=== PATIENT | female | born 1950 | race Caucasian/White ===

== ENCOUNTER 2021-01-29 13:11 | Inpatient (IN) ==
[2021-01-29] MEDS ORDERED: ONDANSETRON 4 MG/2 ML VIAL IV PRN (13:18)
[2021-01-29] MEDS ORDERED: MAGNESIUM HYDROXIDE SUSP 30 ML UDCUP PO PRN (13:25)
[2021-01-29] MEDS ORDERED: ZALEPLON 5 MG CAPSULE PO PRN (13:36)
[2021-01-29] MEDS ORDERED: VANCOMYCIN IV SCH (14:00)
[2021-01-29] MEDS ORDERED: IN SODIUM CHLORIDE IV SCH (14:00)
[2021-01-29] MEDS ORDERED: VANCOMYCIN INJ 1,500 MG in SODIUM CHLORIDE 0.9% 500 ML IV SCH (14:00)
[2021-01-29 15:30] LABS: Basophils % 0.4 % (0.0-0.8); Eosinophils # 0.2 10*3/uL (0.0-0.87); Eosinophils % 1.7 % (0.00-10.9); Hemoglobin 10.8 GM/DL (12.0-16.0); Immature Granulocytes % 0.4 %; Immature Granulocytes Absolute 0.04 #; Lymphocytes # 2.4 10*3/uL (1.4-4.0); Lymphocytes % 24.2 % (21.3-54.2); Mean Corpuscular HGB Conc 31.8 GM/DL (32-36); Mean Corpuscular Volume 86.5 FL (87-102); Mean Platelet Volume 9.4 FL (9.6-12.0); Monocytes % 7.2 % (1.7-12.7); Neutrophils % 66.1 % (38.7-73.9); Platelet Count 350 T/CUMM (130-400); Red Blood Count 3.93 MC/CUMM (3.8-5.5); Red Cell Distribution Width 14.6 % (9.3-17.3); White Blood Count 9.9 T/CUMM (4-12)
[2021-01-29 16:04] LABS: Alanine Aminotransferase 23 U/L (13-56); Albumin 2.9 G/DL (3.4-5.0); Alkaline Phosphatase 152 U/L (45-117); Aspartate Amino Transferase 13 U/L (0-37); Bilirubin,Total < 0.39 MG/DL (0.2-1.0); Blood Urea Nitrogen 11 MG/DL (7-18); Calcium 8.9 MG/DL (8.5-10.1); Carbon Dioxide 29 MMOL/L (21-32); Estimated Glom Filtration Rate 92 ML/MIN; Glucose 84 MG/DL (74-106); Osmolality,Calculated 261.5 MOS/KG (273-304); Potassium 2.9 MMOL/L (3.5-5.1); Sodium 132 MMOL/L (136-145); Total Protein 7.1 G/DL (6.4-8.2)
[2021-01-29] MEDS: DEXTROSE 5% NACL 0.45% 1,000 ML IV SCH (16:07)
[2021-01-29] MEDS ORDERED: MEROPENEM 500 MG in SODIUM CHLORIDE 0.9% 100 ML IV SCH (17:00)
[2021-01-29] MEDS: POTASSIUM CHLORIDE 20 MEQ TABLET PO PRN ×3 (17:13→23:47)
[2021-01-29] MEDS: MEROPENEM 1,000 MG in SODIUM CHLORIDE 0.9% 100 ML IV SCH (17:13)
[2021-01-29] MEDS: VANCOMYCIN INJ 1,000 MG in SODIUM CHLORIDE 0.9% 250 ML IV SCH (17:53)
[2021-01-29] MEDS: DOCUSATE SODIUM 100 MG CAPSULE PO SCH (21:24)
[2021-01-29] MEDS: COLESTIPOL 1 GM TABLET PO SCH (21:24)
[2021-01-29] MEDS: ACETAMINOPHEN 325 MG TABLET PO PRN (21:24)
[2021-01-30] MEDS: MEROPENEM 1,000 MG in SODIUM CHLORIDE 0.9% 100 ML IV SCH (00:01)
[2021-01-30] MEDS: POTASSIUM CHLORIDE 20 MEQ TABLET PO PRN (01:58)
[2021-01-30] MEDS: DEXTROSE 5% NACL 0.45% 1,000 ML IV SCH ×4 (01:58→21:48)
[2021-01-30 05:06] LABS: Basophils % 0.5 % (0.0-0.8); Eosinophils # 0.3 10*3/uL (0.0-0.87); Eosinophils % 4.1 % (0.00-10.9); Hematocrit 31.2 VOL% (35.7-47.0); Hemoglobin 9.8 GM/DL (12.0-16.0); Immature Granulocytes % 0.5 %; Immature Granulocytes Absolute 0.03 #; Lymphocytes % 31.4 % (21.3-54.2); Mean Corpuscular HGB Conc 31.4 GM/DL (32-36); Mean Corpuscular Volume 88.4 FL (87-102); Mean Platelet Volume 9.3 FL (9.6-12.0); Monocytes % 10.3 % (1.7-12.7); Neutrophils % 53.2 % (38.7-73.9); Platelet Count 322 T/CUMM (130-400); Red Blood Count 3.53 MC/CUMM (3.8-5.5); Red Cell Distribution Width 14.7 % (9.3-17.3); White Blood Count 6.4 T/CUMM (4-12)
[2021-01-30 05:36] LABS: Alanine Aminotransferase 18 U/L (13-56); Albumin 2.3 G/DL (3.4-5.0); Alkaline Phosphatase 116 U/L (45-117); Aspartate Amino Transferase 11 U/L (0-37); Bilirubin,Total < 0.39 MG/DL (0.2-1.0); Blood Urea Nitrogen 9 MG/DL (7-18); Calcium 8.2 MG/DL (8.5-10.1); Carbon Dioxide 28 MMOL/L (21-32); Estimated Glom Filtration Rate 92 ML/MIN; Glucose 120 MG/DL (74-106); Osmolality,Calculated 276.5 MOS/KG (273-304); Sodium 139 MMOL/L (136-145); Total Protein 5.9 G/DL (6.4-8.2)
[2021-01-30 05:40] LABS: Risk Ratio 2.43; VLDL Cholesterol 18.8 MG/DL
[2021-01-30] MEDS: LEVOTHYROXINE 88 MCG TABLET PO SCH ×2 (05:50→05:58)
[2021-01-30] MEDS: VANCOMYCIN INJ 1,000 MG in SODIUM CHLORIDE 0.9% 250 ML IV SCH ×2 (05:52→17:57)
[2021-01-30] MEDS ORDERED: LIDOCAINE 1%/EPI INJ 20 ML VIAL ONE (07:57)
[2021-01-30] MEDS ORDERED: BUPIVACAINE MPF 0.25% 30 ML VIAL ONE (07:57)
[2021-01-30] MEDS ORDERED: LIDOCAINE 2% 5 ML VIAL ONE (08:03)
[2021-01-30] MEDS ORDERED: propofoL 200 MG/20 ML VIAL IV ONE (08:03)
[2021-01-30] MEDS ORDERED: MIDAZOLAM 2 MG/2 ML VIAL ONE (08:03)
[2021-01-30] MEDS ORDERED: fentaNYL 100 MCG/2 ML VIAL ONE (08:04)
[2021-01-30] MEDS ORDERED: FAMOTIDINE 20 MG/2 ML VIAL IV ONE (08:31)
[2021-01-30] MEDS ORDERED: SUCCINYLCHOLINE 200 MG/10 ML VIAL ONE (08:40)
[2021-01-30] MEDS ORDERED: ONDANSETRON 4 MG/2 ML VIAL ONE (08:40)
[2021-01-30] MEDS ORDERED: DEXAMETHASONE 4 MG/1 ML VIAL ONE (08:40)
[2021-01-30] MEDS ORDERED: ROCURONIUM 50 MG/5 ML VIAL IV ONE (08:40)
[2021-01-30] MEDS ORDERED: MEROPENEM 500 MG in SODIUM CHLORIDE 0.9% 100 ML IV SCH (09:00)
[2021-01-30] MEDS ORDERED: SEVOFLURANE 1 UNIT/15 MINUTE INH ONE (09:08)
[2021-01-30] MEDS ORDERED: PHENYLEPHRINE 1 MG/10 ML SYRINGE IV ONE (09:31)
[2021-01-30] MEDS ORDERED: HYDROmorphone 2 MG/1 ML VIAL IV PRN (09:43)
[2021-01-30] MEDS ORDERED: ONDANSETRON 4 MG/2 ML VIAL IV PRN (09:43)
[2021-01-30] MEDS ORDERED: HYDROmorphone 2 MG/1 ML VIAL ONE (09:44)
[2021-01-30] MEDS: MEROPENEM 500 MG in SODIUM CHLORIDE 0.9% 100 ML IV SCH ×3 (10:34→21:13)
[2021-01-30] MEDS: ESTRADIOL 1 MG TABLET PO SCH (10:37)
[2021-01-30] MEDS: COLESTIPOL 1 GM TABLET PO SCH ×2 (10:37→21:10)
[2021-01-30] MEDS: ESCITALOPRAM 10 MG TABLET PO SCH (10:38)
[2021-01-30] MEDS: POTASSIUM CHLORIDE 20 MEQ TABLET PO SCH (10:38)
[2021-01-30] MEDS: PANTOPRAZOLE 40 MG TABLET PO SCH (10:38)
[2021-01-30] MEDS: DOCUSATE SODIUM 100 MG CAPSULE PO SCH ×2 (10:38→21:10)
[2021-01-30] MEDS: ACETAMINOPHEN 325 MG TABLET PO PRN (21:53)
[2021-01-31] MEDS: MEROPENEM 500 MG in SODIUM CHLORIDE 0.9% 100 ML IV SCH ×2 (03:12→10:48)
[2021-01-31] MEDS: LEVOTHYROXINE 88 MCG TABLET PO SCH (05:50)
[2021-01-31] MEDS: VANCOMYCIN INJ 1,000 MG in SODIUM CHLORIDE 0.9% 250 ML IV SCH (05:51)
[2021-01-31] MEDS: DEXTROSE 5% NACL 0.45% 1,000 ML IV SCH (05:54)
[2021-01-31 06:10] LABS: Basophils % 0.4 % (0.0-0.8); Eosinophils # 0.1 10*3/uL (0.0-0.87); Eosinophils % 0.8 % (0.00-10.9); Hematocrit 29.9 VOL% (35.7-47.0); Hemoglobin 9.3 GM/DL (12.0-16.0); Immature Granulocytes % 0.4 %; Immature Granulocytes Absolute 0.04 #; Lymphocytes # 2.5 10*3/uL (1.4-4.0); Lymphocytes % 26.7 % (21.3-54.2); Mean Corpuscular HGB Conc 31.1 GM/DL (32-36); Mean Corpuscular Volume 89.5 FL (87-102); Mean Platelet Volume 9.8 FL (9.6-12.0); Monocytes % 6.6 % (1.7-12.7); Neutrophils % 65.1 % (38.7-73.9); Platelet Count 310 T/CUMM (130-400); Red Blood Count 3.34 MC/CUMM (3.8-5.5); Red Cell Distribution Width 14.8 % (9.3-17.3); White Blood Count 9.3 T/CUMM (4-12)
[2021-01-31 06:23] LABS: Osmolality,Calculated 277.5 MOS/KG (273-304); Potassium 3.2 MMOL/L (3.5-5.1)
[2021-01-31] MEDS: ESTRADIOL 1 MG TABLET PO SCH (08:07)
[2021-01-31] MEDS: PANTOPRAZOLE 40 MG TABLET PO SCH (08:08)
[2021-01-31] MEDS: ESCITALOPRAM 10 MG TABLET PO SCH (08:09)
[2021-01-31] MEDS: DOCUSATE SODIUM 100 MG CAPSULE PO SCH (08:11)
[2021-01-31] MEDS: COLESTIPOL 1 GM TABLET PO SCH (08:11)
[2021-01-31] MEDS: POTASSIUM CHLORIDE 20 MEQ TABLET PO SCH (08:12)
[2021-01-31] MEDS ORDERED: AMOXICILLIN/CLAV 875 MG TABLET PO SCH (11:30)
[2021-01-31 11:40] VITALS: BP 130/61
== END 2021-01-31 14:12 | disposition home or self-care (01) | DRG 571 ==
LOC: N.5E 13:51
PROVIDERS: ADMIT Family Medicine; ATTEND Family Medicine